=== PATIENT | male | born 1990 | race Caucasian/White ===

== ENCOUNTER 2022-04-25 12:43 | Emergency (ER) | payer OTHER, SELFPAY ==
[2022-04-25 12:49] VITALS: BP 124/65; PULSE 62; RESP 18; TEMP 36.9; O2SAT 98; BMI 24.4
--- NOTE | 2022-04-25 12:54 | ED.SYNCOPE ---
HPI - Syncope General Chief Complaint: Dizziness Stated Complaint: PASSED OUT @WORK HIT HEAD,+LOC ,-CCOLLAR Time Seen by Provider: 04/25/22 12:45 Source: patient and EMS Mode of arrival: EMS Limitations: no limitations History of Present Illness HPI narrative: 31 yo male presents to the ER from work via EMS after he felt lightheaded, dizzy and passed out while sitting at his desk at work. He reports he was sitting down when he had a few episodes of brief palpitations. They self resolved after a couple of seconds. He then felt lightheaded and put his head on the desk. He woke up on the ground. He states he passed out briefly. It was witnessed by his co-workers. He did not sustain and injuries. He has a history of syncope in the past and has been having palpitations intermittently, last was about a month ago. He admits to significant caffeine intake but denies illicit drug use. No medical history. MD complaint: loss of consciousness and felt faint Onset (ago): minute(s) -: second(s) Prodromal symptoms: lightheaded and palpitations Witnessed: Yes - by Bystander Context: at rest Injuries sustained associated with event: none Current symptoms: back to baseline History: previous syncopal episode Treatments prior to arrival: none Related Data Allergies Allergy/AdvReac Type Severity Reaction Status Date / Time Unable to Assess Allergy Unverified 04/25/22 12:55 Review of Systems Review of Systems: Constitutional: No Fever, No Chills ENT/Mouth: No sore throat, No Rhinorrhea, No Swallowing Difficulty Eyes: No Eye Pain, No Swelling, No Redness, No vision changes Cardiovascular: No Chest Pain, No SOB, +Palpitations, No Orthopnea, No Edema Respiratory: No Cough, No Sputum, No Wheezing, No dyspnea Gastrointestinal: No Nausea, No Vomiting, No Diarrhea, No abdominal Pain Genitourinary: No Dysuria, No Urinary Frequency, No Hematuria Musculoskeletal: No joint pain, No Myalgias Skin: No Skin Lesions, No rash Neuro: No Weakness, No Numbness, + Dizziness, No Headache Psych: + Anxiety/Panic, No Depression Heme/Lymph: No Bruising, No Lymphadenopathy Endocrine: No Polyuria, No Polydipsia PMFSH Social History Social History Advance Directives: No Advance Directives Information Provided: No Physical Exam Vital Signs: Vital Signs: Last Vital Signs Temp 98.4 F 04/25/22 12:49 Pulse 59 04/25/22 13:40 Resp 18 04/25/22 12:49 BP 116/78 04/25/22 13:40 Pulse Ox 98 04/25/22 12:49 O2 Del Method 04/25/22 12:49 BMI result Body Mass Index 24.4 Appearance: Alert. Oriented X3. No acute distress. Head: atraumatic normocephalic Eyes: Pupils equal, round and reactive to light. EOMI, no nystagmus ENT: Pharynx normal. Neck: Normal inspection. Neck supple. No midline tenderness CVS: Normal heart rate and rhythm. Pulses normal. Respiratory: No respiratory distress. Breath sounds normal. Abdomen: Soft and nontender. +BS x4 Skin: Skin warm and dry. Normal skin color. Normal skin turgor. No rashes. Extremities: No lower extremity edema. Neuro: Oriented X 3. No motor deficit. No sensory deficit. Course Course Course Narrative: 31 y/o male presenting to the ER for evaluation of palpitations and syncope [employer] WORK[employer]. Base to baseline. history of the same a few years ago. No cardiac history or illicit drug use. Reports palpitations on/off in the last 1 month. Will get labs, TSH, EKG, and orthostatic VS. He feels well and looks well. Reevaluation(s) Reevaluation #1: Workup negative. Orthostatics negative. At this time patient is stable for d/c home with plan to follow up with his PCP and cardiology for evaluation of possible Holter. In the meantime, encouraged to cut back on caffiene. MDM - Syncope Medical Records Attestation: I reviewed the patient's medical records. Lab Data Attestation: I reviewed the patient's lab results. Result diagrams: 04/25/22 13:18 04/25/22 13:18 Labs: Lab Results 04/25/22 04/25/22 04/25/22 Range/Units 12:54 13:18 13:18 WBC 6.0 (4.8-10.8) X10*3/uL RBC 5.27 (4.60-5.80) X10*6/uL Hgb 15.5 (14.0-18.0) g/dl Hct 44.9 (42.0-52.0) % MCV 85.2 (80.0-98.0) fL MCH 29.4 (27.0-33.0) pg MCHC 34.5 (31.0-36.0) g/dl RDW 11.3 (11.0-16.0) % Plt Count 183 (160-400) X10*3/uL MPV 10.2 (9.4-12.4) fL Immature Gran % (Auto) 0.2 (0.0-0.4) % Neut % (Auto) 58.1 (45-73) % Lymph % (Auto) 32.1 (20-40) % [place] % (Auto) 8.0 (2-11) % Eos % (Auto) 1.3 (0-4) % Baso % (Auto) 0.3 (0-2) % Lymph # (Auto) 1.9 (1.2-4.9) X10*3/uL [place] # (Auto) 0.5 (0.1-1.2) X10*3/uL Eos # (Auto) 0.1 (0.0-0.4) X10*3/uL Baso # (Auto) 0.0 (0.0-0.2) X10*3/uL Abs Immat Gran (auto) 0.01 (0.00-0.03) X10*3/uL Absolute Neuts (auto) 3.5 (2.0-8.3) x10*3/uL Absolute Nucleated RBC 0.000 (0.0-0.012) X10*3/uL Nucleated RBC % (auto) 0.0 (0.0-0.2) /100WBC Sodium 140 (135-145) mmol/L Potassium 3.7 (3.3-5.1) mmol/L Chloride 104 (96-108) mmol/L Carbon Dioxide 26 (22-29) mmol/L Anion Gap 14 (12-20) BUN 26 H (9-16) mg/dL Creatinine 1.39 (0.5-1.4) mg/dL Estim Creat Clear Calc 82.7 Estimated GFR 60 POC Glucose 82 (60-115) mg/dL Random Glucose 100 (60-115) mg/dL Calcium 9.4 (8.4-10.2) mg/dL Magnesium 1.9 (1.6-2.6) mg/dL Total Bilirubin 0.8 (0.0-1.0) mg/dL Direct Bilirubin 0.3 (0.0-0.5) mg/dL AST 21 (5-37) U/L ALT 26 (0-40) U/L Alkaline Phosphatase 100 (39-117) U/L Troponin I High Sens (<3.5-35.0) ng/L Total Protein 7.4 (6.5-8.0) g/dL Albumin 4.6 (3.5-5.0) g/dL TSH (0.32-4.0) uIU/mL Urine Opiates Screen (Not Detect) Urine Fentanyl Screen (Not Detect) Ur Barbiturates Screen (Not Detect) Ur Phencyclidine Scrn (Not Detect) Ur Amphetamines Screen (Not Detect) U Benzodiazepines Scrn (Not Detect) Urine Cocaine Screen (Not Detect) U Marijuana (THC) Screen (Not Detect) 04/25/22 04/25/22 04/25/22 Range/Units 13:18 13:18 13:54 WBC (4.8-10.8) X10*3/uL RBC (4.60-5.80) X10*6/uL Hgb (14.0-18.0) g/dl Hct (42.0-52.0) % MCV (80.0-98.0) fL MCH (27.0-33.0) pg MCHC (31.0-36.0) g/dl RDW (11.0-16.0) % Plt Count (160-400) X10*3/uL MPV (9.4-12.4) fL Immature Gran % (Auto) (0.0-0.4) % Neut % (Auto) (45-73) % Lymph % (Auto) (20-40) % [place] % (Auto) (2-11) % Eos % (Auto) (0-4) % Baso % (Auto) (0-2) % Lymph # (Auto) (1.2-4.9) X10*3/uL [place] # (Auto) (0.1-1.2) X10*3/uL Eos # (Auto) (0.0-0.4) X10*3/uL Baso # (Auto) (0.0-0.2) X10*3/uL Abs Immat Gran (auto) (0.00-0.03) X10*3/uL Absolute Neuts (auto) (2.0-8.3) x10*3/uL Absolute Nucleated RBC (0.0-0.012) X10*3/uL Nucleated RBC % (auto) (0.0-0.2) /100WBC Sodium (135-145) mmol/L Potassium (3.3-5.1) mmol/L Chloride (96-108) mmol/L Carbon Dioxide (22-29) mmol/L Anion Gap (12-20) BUN (9-16) mg/dL Creatinine (0.5-1.4) mg/dL Estim Creat Clear Calc Estimated GFR POC Glucose (60-115) mg/dL Random Glucose (60-115) mg/dL Calcium (8.4-10.2) mg/dL Magnesium (1.6-2.6) mg/dL Total Bilirubin (0.0-1.0) mg/dL Direct Bilirubin (0.0-0.5) mg/dL AST (5-37) U/L ALT (0-40) U/L Alkaline Phosphatase (39-117) U/L Troponin I High Sens < 3.5 (<3.5-35.0) ng/L Total Protein (6.5-8.0) g/dL Albumin (3.5-5.0) g/dL TSH 3.23 (0.32-4.0) uIU/mL Urine Opiates Screen Not Detected (Not Detect) Urine Fentanyl Screen Not Detected (Not Detect) Ur Barbiturates Screen Not Detected (Not Detect) Ur Phencyclidine Scrn Not Detected (Not Detect) Ur Amphetamines Screen Not Detected (Not Detect) U Benzodiazepines Scrn Not Detected (Not Detect) Urine Cocaine Screen Not Detected (Not Detect) U Marijuana (THC) Screen Not Detected (Not Detect) ECG Data Attestation: I personally reviewed and interpreted this ECG as follows: ECG interpretation date: 04/25/22 ECG interpretation time: 15:17 Interpretation: sinus bradycardia with sinus arrhythmia, normal AR interval, normal QTc, no ST segment elevations or depressions Critical Care Time Critical Care Time Critical Care Time: No Discharge Plan Discharge Clinical Impression: Syncope, Palpitations Patient Disposition: Home, Self-Care Instructions: Heart Palpitations (DC), Syncope (ED) Additional Instructions: Your lab workup today was normal. Recommend decreasing your caffeine intake Recommend following up with Cardiology for further evaluation. Name and number below. If you develop new or worsening symptoms call 911 or come back to the ER for further evaluation. Referrals: Constantin Peñaloza MD [Physician] - (palpitations and syncope) Stand Alone Forms: Work/School Release
--- NOTE | 2022-04-25 12:55 | ECG_ITS ---
Test Reason : syncope Blood Pressure : / mmHG Vent. Rate : 054 BPM Atrial Rate : 054 BPM P-R Int : 194 ms QRS Dur : 106 ms QT Int : 430 ms P-R-T Axes : 065 063 035 degrees QTc Int : 407 ms Sinus bradycardia with sinus arrhythmia Otherwise normal ECG No previous ECGs available Referred By: Pema Fournier Electronically Signed By:Constantin Peñaloza
[2022-04-25 12:58] LABS: Glucose, Whole Blood 82 mg/dL (60-115)
[2022-04-25 13:24] LABS: MANUAL DIFF FLAG NO
[2022-04-25 13:26] LABS: Basophils Percent Auto 0.3 % (0-2); Eosinophils Absolute Auto 0.1 X10*3/uL (0.0-0.4); Eosinophils Percent Auto 1.3 % (0-4); Hematocrit 44.9 % (42.0-52.0); Hemoglobin 15.5 g/dl (14.0-18.0); Imm Gran Abs Auto 0.01 X10*3/uL (0.00-0.03); Imm Gran Pct Auto 0.2 % (0.0-0.4); Lymphocytes Absolute Auto 1.9 X10*3/uL (1.2-4.9); Lymphocytes Percent Auto 32.1 % (20-40); Mean Corpuscular HGB Conc 34.5 g/dl (31.0-36.0); Mean Corpuscular Hemoglobin 29.4 pg (27.0-33.0); Mean Corpuscular Volume 85.2 fL (80.0-98.0); Mean Platelet Volume 10.2 fL (9.4-12.4); Monocytes Absolute Auto 0.5 X10*3/uL (0.1-1.2); Neutrophils Absolute Auto 3.5 x10*3/uL (2.0-8.3); Neutrophils Percent Auto 58.1 % (45-73); Platelet Count 183 X10*3/uL (160-400); Red Blood Count 5.27 X10*6/uL (4.60-5.80); Red Cell Distribution Width 11.3 % (11.0-16.0)
[2022-04-25 13:37] VITALS: BP 113/52; PULSE 56
[2022-04-25 13:38] VITALS: BP 110/54; PULSE 62
[2022-04-25 13:40] VITALS: BP 116/78; PULSE 59
[2022-04-25 13:44] LABS: Alanine Aminotransferase 26 U/L (0-40); Albumin Level 4.6 g/dL (3.5-5.0); Alkaline Phosphatase 100 U/L (39-117); Anion Gap 14 (12-20); Aspartate Amino Transferase 21 U/L (5-37); Bilirubin Direct 0.3 mg/dL (0.0-0.5); Bilirubin Total 0.8 mg/dL (0.0-1.0); Blood Urea Nitrogen 26 mg/dL (9-16); Calcium 9.4 mg/dL (8.4-10.2); Carbon Dioxide 26 mmol/L (22-29); Chloride 104 mmol/L (96-108); Creatinine Clr Calc Pharmacy 82.7; Estimated Glomerular Filt Rate 60; Glucose Random 100 mg/dL (60-115); Magnesium 1.9 mg/dL (1.6-2.6); Potassium 3.7 mmol/L (3.3-5.1); Sodium 140 mmol/L (135-145); Total Protein 7.4 g/dL (6.5-8.0)
[2022-04-25 13:50] LABS: Troponin-I High Sensitivity < 3.5 ng/L (<3.5-35.0)
[2022-04-25 14:04] LABS: TSH reflex Free T4 3.23 uIU/mL (0.32-4.0)
[2022-04-25 14:33] LABS: Amphetamine Screen Urine Not Detected (Not Detect); Barbiturates, Urine Not Detected (Not Detect); Benzodiazepines Screen Urine Not Detected (Not Detect); Cannabinoid Screen Urine Not Detected (Not Detect); Cocaine Screen Urine Not Detected (Not Detect); Fentanyl, urine Not Detected (Not Detect); Opiate Screen Urine Not Detected (Not Detect); Phencyclidine Screen Urine Not Detected (Not Detect)
[2022-04-25 15:22] VITALS: BP 112/67; PULSE 58; RESP 16; O2SAT 100
== END 2022-04-25 15:27 | disposition home or self-care (01) ==
PROVIDERS: Physician Assistant; Emergency Provider Emergency Medicine
DX: R55 Syncope and collapse (principal); R00.2 Palpitations
CPT/HCPCS: 36415; 80048; 80076; 80307; 82947; 83735; 84443; 84484; 85025; 93005; 99284

== ENCOUNTER → 2022-07-10 08:23 | Outpatient (REF) | payer OTHER, SELFPAY ==
--- NOTE | 2022-07-10 08:26 | CA_ITS ---
Transthoracic Echocardiogram Patient (Last, First, Middle): Wicho Cunha, Gender: Male Date of : 1990 Age: 31 Procedure Date: 07/10/2022 Procedure Type: Transthoracic Echocardiogram Location: OP Height: 180.34 cm Weight: 82.56 kg BSA: 2.03 m2 Heart Rate: 53 bpm BP: 112 / 67 mmHg Associate Professor Of Theatre: ERICK Referring MD: Bre Fernandez EARLY CHILDHOOD COORDINATORNickolasC Personal Injury Paralegal: Jean-Paul Dominguez MD Symptoms: R55 - Syncope and collapse Study Quality: Adequate ECG Rhythm: Bradycardia Conclusions: - Normal study Findings Left Ventricle Normal left ventricular size, thickness, and systolic function. The visually estimated ejection fraction is between 60-65%. Spectral Doppler is indicative of a normal filling pattern. Peak GLS is -21.8%, within normal limits. Right Ventricle Normal right ventricular cavity size and systolic function. Atria Both atria are normal in size. Interatrial shunt cannot be excluded. Aortic Valve Normal aortic valve structure and function. There is no aortic valve stenosis. There is no aortic valve regurgitation. Mitral Valve Normal mitral valve structure and function. There is trace mitral valve regurgitation. There is no mitral valve stenosis. Pulmonic Valve The pulmonic valve is likely normal. Tricuspid Valve Normal tricuspid valve structure. There is trace tricuspid valve regurgitation. The right ventricular systolic pressure is normal. Normal right atrial pressure. There is no evidence of pulmonary hypertension. Great Vessels All visible segments of the aorta are normal in size. The pulmonary artery was not well visualized. Venous The inferior vena cava is normal in size and collapses greater than 50% with inspiration. Pericardium/Pleural There is no evidence of pericardial effusion. Prior Study Comparison No change compared to prior study. Measurements 2D Linear Measurements IVSd: 0.60 0.6-0.9/0.6-1.0 cm LVIDd: 5.54 3.9-5.3/4.2-5.9 cm LVIDd Index: 2.73 2.4-3.2/2.2-3.1 cm/m2 LVIDs: 3.58 2.0-3.6 cm LVPWd: 0.56 0.7-1.1 cm LA Diam: 3.50 2.7-3.8/3.0-4.0 cm LAIDs Index: 1.72 1.5-2.3 cm/m2 LV Mass: 135.26 67-162/88-224 g LV Mass Index: 66.63 43-95/49-115 g/m2 LVOT Diam: 1.90 3.0+(-)1.3 cm 2D Systolic Function EF 4C: 59.30 >55% EF 2C: 68.80 >55% EF BiP: 64.70 >55% Mitral Valve MV Pk E: 1.05 MV PK A: 0.49 MV Decel Time: 195.00 E/A: 2.10 E'Lateral: 17.30 E'Medial: 8.59 E/E' Med: 12.20 E/E' Lat: 6.10 PHT: 57.00 MVA PHT: 3.86 Decel [place]: 5.41 Aortic Valve AoV Pk Josh: 1.48 AoV Mn Josh: 1.10 AoV VTI: 0.32 AoV Pk Grad: 9.00 Aov Mn Grad: 6.00 HUMBLE Cont.VTI: 2.64 LVOT LVOT Pk Josh: 1.36 LVOT Mn Josh: 0.94 LVOT VTI: 0.29 LVOT Pk Grad: 7.00 LVOT Mn Grad: 4.00 LVOT Diam: 1.90 LVOT Area: 2.84 Diastolic Function MV Pk E: 1.05 MV Pk A: 0.49 E/A: 2.10 E'Medial: 8.59 E/E' Med: 12.20 E' Laterial: 17.30 E/E' Lat: 6.10 Right Ventricle TAPSE (mm): 24.80 TVS' Josh: 14.80 Tricuspid Valve TR Pk Josh: 2.13 TR Pk Grad: 18.00 RA Press: 3.00 RVSP: 21.00 Great Vessels Aorta Sinus of Valsalva: 3.00 2.0-3.5 cm Ao Asc: 2.60 2.1-3.4 cm Ao Arch: 2.30 Pulmonary Veins Pulm Vein S/D 0.70 Pulmonary Valve PV Pk Josh: 1.02 Peak PV Grad: 4.00 Updated in Other Vendor System with Status of Final Jean-Paul Dominguez MD electronically signed on 07/11/2022 4:52:36 PM with status of Final
--- NOTE | 2022-07-10 08:26 | HM_ITS ---
* Total monitoring time 6 days and 22 hours. * Underlying rhythm is sinus. Average heart rate 62/Min. Range 34 to 130/Min. * Very rare PVCs with minimal burden. * No sustained arrhythmias. * Patient symptoms of chest tightness/tenderness associated with sinus rhythm. MTDD
== END ==
LOC: HO.CARD 08:23
PROVIDERS: Visit Provider Nurse Practitioner Family
DX: R00.2 Palpitations (principal); R55 Syncope and collapse
CPT/HCPCS: 93242; 93306; 93356